=== PATIENT | female | born 1990 | race Caucasian/White ===

== ENCOUNTER 2018-01-03 16:21 | Emergency (ER) | payer OTHER ==
[~2018-01-03 16:21] MED LIST: Iopamidol 370 76% 100 ML VIAL ONE
[2018-01-03] MEDS ORDERED: HYDROcodone/Acetaminophen 10/325 mg Tablet ONE (16:56)
[2018-01-03] MEDS ORDERED: Naproxen 500 MG TAB ONE (16:56)
[2018-01-03] MEDS ORDERED: Ondansetron ODT 4 MG TAB ONE (16:57)
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
[2018-01-03] MEDS ORDERED: Morphine 10 MG/ML VIAL ONE (18:39)
[2018-01-03] MEDS ORDERED: Ketorolac Tromethamine 30 MG/ML VIAL ONE (18:39)
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
== END 2018-01-03 19:00 | disposition home or self-care (01) ==
LOC: MADERS 16:21
DX: S82.401A Unspecified fracture of shaft of right fibula, initial encounter for closed fracture (principal); F17.210 Nicotine dependence, cigarettes, uncomplicated; V29.9XXA Motorcycle rider (driver) (passenger) injured in unspecified traffic accident, initial encounter
CPT/HCPCS: 71260; 72040; 96374; 96375; J1885; J2270; Q0162